=== PATIENT | female | born 1995 | race Two or more races ===

== ENCOUNTER 2017-08-23 11:02 | Emergency (ER) | payer MEDICAID ==
[~2017-08-23] VITALS: Ht 165.1 cm; Wt 89.8 kg
[~2017-08-23 11:02] MED LIST: PREN-129 PO; SUMA5SPR3
[2017-08-23 11:43] LABS: Basophils # (auto) 0.1 uL; Basophils % (auto) 0.5 % (0.0-2.0); Eosinophils # (auto) 0.1 uL; Eosinophils % (auto) 0.6 % (0.0-7.0); Hematocrit 33.3 % (36.0-46.0); Hemoglobin 10.8 g/dL (12.2-16.2); Lymphocytes # (auto) 1.9 uL; Lymphocytes % (auto) 18.3 % (10.0-50.0); Mean Corpuscular Hemoglobin 27.9 pg (28.0-32.0); Mean Corpuscular Hgb Conc. 32.6 g/dL (32.0-36.0); Mean Corpuscular Volume 85.5 fL (80.0-100.0); Monocytes # (auto) 0.7 uL; Monocytes % (auto) 6.6 % (0.0-12.0); Neutrophils # (auto) 7.5 uL; Platelet Count (auto) 277 10^3/uL (140-450); Red Blood Cells 3.89 10^6/uL (4.0-5.20); Red Cell Distribution Width 15.3 % (11.8-14.3); White Blood Cell 10.2 10^3/uL (4.4-10.8)
[2017-08-23] MEDS ORDERED: SODIUM CHLORIDE 0.9% 1,000 ML IV ONE (12:30)
[2017-08-23 13:14] LABS: Urine Bacteria FEW /hpf (None Seen); Urine Blood Negative /uL (Negative); Urine Mucus FEW (None Seen); Urine Specific Gravity 1.015 (1.001-1.035); Urine WBC 3 /hpf (0 - 5)
[2017-08-23 13:18] LABS: Albumin 3.1 g/dL (3.4-5.0); Calcium 9.2 mg/dL (8.5-10.1)
[2017-08-23 13:21] LABS: Bilirubin, Total 0.1 mg/dL (0.2-1.0); Total Protein 7.4 g/dL (6.4-8.2)
[2017-08-23 14:17] VITALS: BP 125/57
== END 2017-08-23 15:58 | disposition home or self-care (01) ==
LOC: ER 11:02
DX: O23.42 Unspecified infection of urinary tract in pregnancy, second trimester (principal); O26.892 Other specified pregnancy related conditions, second trimester; R42 Dizziness and giddiness; R51 Headache; Z3A.19 19 weeks gestation of pregnancy
CPT/HCPCS: 36415; 76805; 80053; 81001; 84702; 85025; 96360; 99285; J7030

== ENCOUNTER 2019-08-04 18:15 | Emergency (ER) | payer MEDICAID ==
[~2019-08-04] VITALS: Ht 167.6 cm; Wt 93.0 kg
[2019-08-05 01:23] VITALS: BP 155/89
== END 2019-08-05 04:52 | disposition left against medical advice (07) ==
LOC: ER 18:15
DX: R29.810 Facial weakness (principal); Z53.21 Procedure and treatment not carried out due to patient leaving prior to being seen by health care provider
CPT/HCPCS: 70450

== ENCOUNTER 2021-04-09 16:53 | Inpatient (IN) | payer MEDICAID ==
[~2021-04-09] VITALS: Ht 167.6 cm; Wt 105.5 kg
[2021-04-09 19:50] LABS: Basophils # (auto) 0 10 ^3/uL (0-0.2); Basophils % (auto) 0.2 % (0.0-2.0); Eosinophils # (auto) 0 10 ^3/uL (0-0.8); Hematocrit 44.5 % (36.0-46.0); Lymphocytes # (auto) 0.9 10 ^3/uL (0.4-5.4); Lymphocytes % (auto) 5.3 % (10.0-50.0); Mean Corpuscular Hemoglobin 31.2 pg (28.0-32.0); Mean Corpuscular Hgb Conc. 33.6 g/dL (32.0-36.0); Mean Corpuscular Volume 92.8 fL (80.0-100.0); Monocytes % (auto) 6.1 % (0.0-12.0); Neutrophils % (auto) 88.4 % (37.0-80.0); Red Cell Distribution Width 13.1 % (11.8-14.3)
[2021-04-09 20:07] LABS: Albumin 3.6 g/dL (3.4-5.0); Anion Gap 15 (5-15); Calcium 8.8 mg/dL (8.5-10.1); Carbon Dioxide 13 mmol/L (21-32); Chloride 105 mmol/L (98-107); Potassium 3.4 mmol/L (3.5-5.1); Sodium 133 mmol/L (136-145)
[2021-04-09 20:11] LABS: Alanine Aminotransferase 42 U/L (13-56); Aspartate Aminotransferase 16 U/L (15-37); BUN/Creatinine Ratio 11.4; Blood Urea Nitrogen 12 mg/dL (7-18); GFR African American 80 mL/min; GFR Non-African American 66 mL/min; Glucose 127 mg/dL (74-106)
[2021-04-09 20:13] LABS: Alkaline Phosphatase 85 U/L (45-117); Bilirubin, Total 0.6 mg/dL (0.2-1.0); Total Protein 8.7 g/dL (6.4-8.2)
[2021-04-10 00:19] LABS: INR 1.11 (0.9-1.15)
[2021-04-10] MEDS ORDERED: ACETAMINOPHEN 500 MG TAB PO ONE (00:30)
[2021-04-10] MEDS ORDERED: SODIUM CHLORIDE 0.9% 1,000 ML IV ONE ×2 (00:30→05:30)
[2021-04-10] MEDS ORDERED: IOHEXOL 300 MG/ML 100ML BOTTLE IJ ONE (01:09)
[2021-04-10] MEDS ORDERED: KETOROLAC TROMETH 30 MG/ML 1ML VIAL IV ONE (05:15)
[2021-04-10] MEDS ORDERED: ONDANSETRON HCL 4 MG/2 ML VIAL IV ONE ×3 (05:15→13:00)
[2021-04-10] MEDS ORDERED: fentaNYL CITRATE 100 MCG/2 ML VL IV ONE (05:15)
[2021-04-10] MEDS ORDERED: CIPROFLOXACIN 400MG/200ML 200 ML IV ONE (05:30)
[2021-04-10] MEDS ORDERED: metroNIDAZOLE 500MG/100ML 100 ML IV ONE (05:30)
[2021-04-10 06:46] LABS: Urine Bacteria NONE SEEN /hpf (None Seen); Urine Blood TRACE /uL (Negative); Urine Mucus FEW (None Seen); Urine WBC 6 /hpf (0 - 5)
[2021-04-10 06:47] LABS: Urine Specific Gravity > 1.050 (1.001-1.035)
[2021-04-10] MEDS ORDERED: MORPHINE SULFATE INJECTION 2 MG/ML SYRG IV ONE (09:00)
[2021-04-10] MEDS ORDERED: LORazepam 2MG/ML-1ML VIAL IV ONE (10:15)
[2021-04-10] MEDS ORDERED: POTASSIUM CHL 20MEQ/100ML 100 ML IV ONE (11:30)
[2021-04-10] MEDS ORDERED: PIPERACILLIN-TAZOB 3.375GM 100 ML IV PRN (11:30)
[2021-04-10] MEDS ORDERED: PIPERACILLIN-TAZOB 3.375GM 100 ML IV SCH (12:30)
[2021-04-10] MEDS: ACETAMINOPHEN 325 MG TAB PO PRN (12:37)
[2021-04-10] MEDS ORDERED: ONDANSETRON HCL 4 MG/2 ML VIAL ONE (12:57)
[2021-04-10] MEDS ORDERED: NITROGLYCERIN 0.4 MG SL TAB SL PRN (13:15)
[2021-04-10] MEDS ORDERED: MORPHINE SULFATE INJECTION 2 MG/ML SYRG IV PRN (13:15)
[2021-04-10] MEDS: HYDROcodone-ACET 5/325MG TAB PO PRN (15:32)
[2021-04-10] MEDS: SODIUM CHLORIDE 0.9% 1,000 ML IV SCH (18:30)
[2021-04-10] MEDS ORDERED: PROCHLORPERAZINE EDISYLATE 5 MG/ML 2ML VIAL IV ONE (19:15)
[2021-04-10] MEDS: PIPERACILLIN-TAZOB 3.375GM 100 ML IV SCH (19:24)
[2021-04-10] MEDS: PANTOPRAZOLE 40 MG/10 ML VIAL INJ IV SCH (22:00)
[2021-04-11] MEDS: MORPHINE SULFATE INJECTION 2 MG/ML SYRG IV PRN ×2 (00:31→18:57)
[2021-04-11] MEDS: ACETAMINOPHEN 325 MG TAB PO PRN (00:32)
[2021-04-11] MEDS: SODIUM CHLORIDE 0.9% 1,000 ML IV SCH ×4 (01:17→19:30)
[2021-04-11 01:22] VITALS: BP 115/84
[2021-04-11] MEDS: HYDROcodone-ACET 5/325MG TAB PO PRN (02:19)
[2021-04-11 05:00] VITALS: BP 107/66
[2021-04-11] MEDS: PIPERACILLIN-TAZOB 3.375GM 100 ML IV SCH ×4 (05:12→18:02)
[2021-04-11 06:19] LABS: Basophils # (auto) 0 10 ^3/uL (0-0.2); Basophils % (auto) 0.4 % (0.0-2.0); Eosinophils # (auto) 0 10 ^3/uL (0-0.8); Hematocrit 41.2 % (36.0-46.0); Hemoglobin 14.6 g/dL (12.2-16.2); Mean Corpuscular Hemoglobin 32.6 pg (28.0-32.0); Mean Corpuscular Hgb Conc. 35.3 g/dL (32.0-36.0); Mean Corpuscular Volume 92.3 fL (80.0-100.0); Monocytes # (auto) 0.5 10 ^3/uL (0-1.3); Monocytes % (auto) 4.8 % (0.0-12.0); Neutrophils % (auto) 83.8 % (37.0-80.0); Red Blood Cells 4.46 10^6/uL (4.0-5.20); Red Cell Distribution Width 12.9 % (11.8-14.3); White Blood Cell 9.5 10^3/uL (4.4-10.8)
[2021-04-11 06:27] LABS: Potassium 3.7 mmol/L (3.5-5.1)
[2021-04-11 06:34] LABS: BUN/Creatinine Ratio 14.4; Calcium 9.2 mg/dL (8.5-10.1)
[2021-04-11 08:00] VITALS: BP 112/68
[2021-04-11] MEDS ORDERED: PANTOPRAZOLE 40 MG/10 ML VIAL INJ IV SCH (10:00)
[2021-04-11] MEDS: PANTOPRAZOLE 40 MG/10 ML VIAL INJ IV SCH ×2 (10:45→21:57)
[2021-04-11 12:00] VITALS: BP 130/77
[2021-04-11] MEDS ORDERED: BUPIVACAINE W/ EPINEPH 0.25% INJ 50ML MDV ONE (12:19)
[2021-04-11] MEDS ORDERED: ceFAZolin 1GM/50ML 100 ML IV ONE (13:00)
[2021-04-11] MEDS ORDERED: ROCURONIUM 10MG/ML 10ML VIAL IV ONE (13:17)
[2021-04-11] MEDS ORDERED: MIDAZOLAM HCL 2MG/2ML 2ml VIAL (1mg/ml) ONE (13:17)
[2021-04-11] MEDS ORDERED: fentaNYL CITRATE 5 ML ONE (13:17)
[2021-04-11] MEDS ORDERED: PROPOFOL 10 MG/ML 20 ML IV ONE (13:18)
[2021-04-11] MEDS ORDERED: ONDANSETRON HCL 4 MG/2 ML VIAL ONE (13:18)
[2021-04-11] MEDS ORDERED: LIDOCAINE 2% (LOCAL ANESTH.) PF 5ml SDV ONE (13:18)
[2021-04-11] MEDS ORDERED: NALOXONE HCL 0.4 MG/ML VIAL ONE (14:06)
[2021-04-11] MEDS ORDERED: HYDROmorphone HCL 2 MG/ML VL IV PRN (14:30)
[2021-04-11] MEDS ORDERED: ONDANSETRON HCL 4 MG/2 ML VIAL IV PRN (14:30)
[2021-04-11] MEDS ORDERED: NEOSTIGMINE 1 MG/ML INJ (10mg/10ML VIAL) ONE (14:38)
[2021-04-11] MEDS ORDERED: GLYCOPYRROLATE 0.2 MG/ML 1ML VIAL ONE (14:38)
[2021-04-11] MEDS ORDERED: HYDROmorphone HCL 2 MG/ML VL ONE (15:04)
[2021-04-11 16:00] VITALS: BP 126/85
[2021-04-11] MEDS ORDERED: VANCOMYCIN PER PHARMACY 0 MG IV SCH (18:00)
[2021-04-11] MEDS ORDERED: VANCOMYCIN 1GM/250ML 250 ML IV SCH (18:45)
[2021-04-11 22:00] VITALS: BP 102/69
[2021-04-12] MEDS: MORPHINE SULFATE INJECTION 2 MG/ML SYRG IV PRN ×4 (00:15→22:43)
[2021-04-12] MEDS: SODIUM CHLORIDE 0.9% 1,000 ML IV SCH ×3 (03:30→19:30)
[2021-04-12] MEDS: PIPERACILLIN-TAZOB 3.375GM 100 ML IV SCH ×2 (03:38→09:11)
[2021-04-12] MEDS: HYDROcodone-ACET 5/325MG TAB PO PRN ×2 (03:49→20:58)
[2021-04-12 05:00] VITALS: BP 114/55
[2021-04-12 05:57] LABS: Basophils # (auto) 0 10 ^3/uL (0-0.2); Basophils % (auto) 0.1 % (0.0-2.0); Calcium 8.1 mg/dL (8.5-10.1); Eosinophils # (auto) 0 10 ^3/uL (0-0.8); Hematocrit 37.3 % (36.0-46.0); Hemoglobin 12.8 g/dL (12.2-16.2); Lymphocytes % (auto) 10.7 % (10.0-50.0); Mean Corpuscular Hemoglobin 31.7 pg (28.0-32.0); Mean Corpuscular Hgb Conc. 34.2 g/dL (32.0-36.0); Mean Corpuscular Volume 92.8 fL (80.0-100.0); Monocytes # (auto) 0.7 10 ^3/uL (0-1.3); Monocytes % (auto) 7.4 % (0.0-12.0); Neutrophils % (auto) 81.8 % (37.0-80.0); Potassium 3.4 mmol/L (3.5-5.1); Red Blood Cells 4.02 10^6/uL (4.0-5.20); White Blood Cell 9.8 10^3/uL (4.4-10.8)
[2021-04-12 05:59] LABS: BUN/Creatinine Ratio 10.4
[2021-04-12] MEDS: ACETAMINOPHEN 325 MG TAB PO PRN (06:48)
[2021-04-12 08:00] VITALS: BP 107/59
[2021-04-12] MEDS: PANTOPRAZOLE 40 MG/10 ML VIAL INJ IV SCH ×2 (09:10→22:14)
[2021-04-12] MEDS ORDERED: VANCOMYCIN 1GM/250ML 250 ML IV SCH ×2 (10:00→18:00)
[2021-04-12 12:00] VITALS: BP 102/52
[2021-04-12 16:00] VITALS: BP 102/55
[2021-04-12] MEDS: ONDANSETRON HCL 4 MG/2 ML VIAL IV PRN ×2 (17:04→22:43)
[2021-04-12] MEDS ORDERED: POTASSIUM CHL 20MEQ/100ML 100 ML IV ONE (18:30)
[2021-04-12] MEDS: levoFLOXacin 500 MG TAB PO SCH (19:00)
[2021-04-12 22:00] VITALS: BP 100/55
[2021-04-12] MEDS: metroNIDAZOLE 500 MG TAB PO SCH (22:14)
[2021-04-13 05:00] VITALS: BP 94/52
[2021-04-13] MEDS: SODIUM CHLORIDE 0.9% 1,000 ML IV SCH ×2 (05:26→12:12)
[2021-04-13] MEDS: metroNIDAZOLE 500 MG TAB PO SCH ×2 (05:30→15:02)
[2021-04-13 06:15] LABS: Hematocrit 34.1 % (36.0-46.0); Hemoglobin 11.8 g/dL (12.2-16.2); Mean Corpuscular Hemoglobin 31.8 pg (28.0-32.0); Mean Corpuscular Hgb Conc. 34.6 g/dL (32.0-36.0); Mean Corpuscular Volume 92.1 fL (80.0-100.0); Red Cell Distribution Width 13.5 % (11.8-14.3); White Blood Cell 9.4 10^3/uL (4.4-10.8)
[2021-04-13 06:27] LABS: Basophils % (manual) 0 (0.0-2.0); Blast Cells 0; Metamyelocytes % 0; Myelocytes % 0; Promyelocytes % 0; Reactive Lymphocytes 0
[2021-04-13 06:30] LABS: Potassium 3.2 mmol/L (3.5-5.1)
[2021-04-13 06:39] LABS: BUN/Creatinine Ratio 11.4; Calcium 8.4 mg/dL (8.5-10.1)
[2021-04-13 08:00] VITALS: BP 107/57
[2021-04-13 08:38] LABS: Band Neutrophils % (manual) 12; Eosinophils % (manual) 1 (0-7); Lymphocytes % (manual) 24 (10.0-50.0); Monocytes % (manual) 10 (0-12)
[2021-04-13] MEDS: PANTOPRAZOLE 40 MG/10 ML VIAL INJ IV SCH (09:40)
[2021-04-13] MEDS: levoFLOXacin 500 MG TAB PO SCH (09:40)
[2021-04-13] MEDS: MORPHINE SULFATE INJECTION 2 MG/ML SYRG IV PRN (09:40)
[2021-04-13] MEDS: ONDANSETRON HCL 4 MG/2 ML VIAL IV PRN ×2 (09:41→18:30)
[2021-04-13] MEDS ORDERED: POTASSIUM CHLORIDE 40 MEQ, LIDOCAINE 1% (LOCAL ANESTH.) 4 ML in SODIUM CHL 0.9% 250 ML IV ONE (11:15)
[2021-04-13] MEDS ORDERED: MET500T PO (11:38)
[2021-04-13] MEDS ORDERED: POTA-180 PO (11:38)
[2021-04-13] MEDS ORDERED: LEVO-28 PO (11:38)
[2021-04-13] MEDS ORDERED: ACET325T10 PO (11:38)
[2021-04-13] MEDS ORDERED: HYDR-4902 PO (11:38)
[2021-04-13] MEDS ORDERED: POTASSIUM CHL 20 Meq TABLET PO ONE (11:45)
[2021-04-13 12:00] VITALS: BP 110/65
[2021-04-13 12:47] VITALS: BP 107/57
[2021-04-13 16:00] VITALS: BP 120/71
== END 2021-04-13 18:39 | disposition home or self-care (01) | DRG 263 ==
LOC: EDBD 16:53 → ER 16:53 → TELE 04-10 13:12 → TELE-WESTW 04-10 23:26
PROVIDERS: ADMIT Internal Medicine; ATTEND Internal Medicine
PROC: 0FN04ZZ Release Liver, Percutaneous Endoscopic Approach (ICD-10-PCS; 2021-04-11)
PROC: 0FT44ZZ Resection of Gallbladder, Percutaneous Endoscopic Approach (ICD-10-PCS; principal; 2021-04-11 13:12)
DX: K80.00 Calculus of gallbladder with acute cholecystitis without obstruction (principal); N17.9 Acute kidney failure, unspecified; E87.1 Hypo-osmolality and hyponatremia; Z68.35 Body mass index [BMI] 35.0-35.9, adult; D72.829 Elevated white blood cell count, unspecified; E87.6 Hypokalemia; Z20.822 Contact with and (suspected) exposure to COVID-19; G43.909 Migraine, unspecified, not intractable, without status migrainosus; Z80.0 Family history of malignant neoplasm of digestive organs; Z80.1 Family history of malignant neoplasm of trachea, bronchus and lung; Z80.41 Family history of malignant neoplasm of ovary; Z80.3 Family history of malignant neoplasm of breast; Z80.8 Family history of malignant neoplasm of other organs or systems; Z81.8 Family history of other mental and behavioral disorders; Z82.0 Family history of epilepsy and other diseases of the nervous system; Z82.3 Family history of stroke; Z82.49 Family history of ischemic heart disease and other diseases of the circulatory system; Z82.5 Family history of asthma and other chronic lower respiratory diseases; Z82.62 Family history of osteoporosis; Z83.3 Family history of diabetes mellitus; E66.01 Morbid (severe) obesity due to excess calories; K66.0 Peritoneal adhesions (postprocedural) (postinfection)
CPT/HCPCS: 36415; 71045; 74177; 76705; 78226; 80048; 80053; 81001; 82247; 83605; 83690; 84702; 85007; 85025; 85027; 85610; 87040; 87077; 87186; 87426; 87493; 96365; 96367; 96375; C9113; G0378; J0690; J1885; J2001; J2250; J2405; J2543; J2704; J3480; J3490

== ENCOUNTER 2024-03-13 06:40 | Emergency (ER) | payer MEDICAID ==
[~2024-03-13] VITALS: Ht 170.2 cm; Wt 94.0 kg
[~2024-03-13 06:40] MED LIST changes: +ACET-1882 PO; +HYDR-4902 PO; +LEVO500T91 PO; +MET500T PO; +POTA-180 PO; -PREN-129 PO; -SUMA5SPR3
[2024-03-13] MEDS: ONDANSETRON ODT 4 MG TAB PO ONE (08:14)
[2024-03-13 08:15] VITALS: BP 115/67; PULSE 64; RESP 15; TEMP 98; O2SAT 98
[2024-03-13 08:52] LABS: Basophils # (auto) 0.1 10 ^3/uL (0-0.2); Basophils % (auto) 0.5 % (0.0-2.0); Eosinophils # (auto) 0.1 10 ^3/uL (0-0.8); Eosinophils % (auto) 1.4 % (0.0-7.0); Hematocrit 43.8 % (36.0-46.0); Hemoglobin 14.7 g/dL (12.2-16.2); Lymphocytes # (auto) 2.5 10 ^3/uL (0.4-5.4); Lymphocytes % (auto) 25.7 % (10.0-50.0); Mean Corpuscular Hemoglobin 32.5 pg (28.0-32.0); Mean Corpuscular Hgb Conc. 33.5 g/dL (32.0-36.0); Monocytes # (auto) 0.5 10 ^3/uL (0-1.3); Monocytes % (auto) 5.7 % (0.0-12.0); Neutrophils # (auto) 6.4 10 ^3/uL (1.6-8.6); Neutrophils % (auto) 66.7 % (37.0-80.0); Platelet Count (auto) 279 10^3/uL (140-450); Red Blood Cells 4.52 10^6/uL (4.0-5.20); Red Cell Distribution Width 13.2 % (11.8-14.3); White Blood Cell 9.7 10^3/uL (4.4-10.8)
[2024-03-13 09:08] LABS: Urine Bacteria MANY /hpf (None Seen); Urine Blood Negative /uL (Negative); Urine Budding Yeast OCCASIONAL /hpf (None Seen); Urine Clarity Clear (Clear); Urine Color Colorless (Yellow); Urine Protein, UAD Negative (Negative); Urine Specific Gravity 1.008 (1.001-1.035); Urine Urobilinogen Normal (Negative); Urine WBC 1 /hpf (0 - 5); Urine pH 6.5 (5.0-9.0)
[2024-03-13 09:09] LABS: Anion Gap 5 (5-15); Carbon Dioxide 26 mmol/L (20-30); Chloride 106 mmol/L (98-107); Potassium 4.1 mmol/L (3.5-5.1); Sodium 137 mmol/L (136-145)
[2024-03-13 09:10] LABS: Calcium 9.7 mg/dL (8.7-10.4)
[2024-03-13 09:15] LABS: BUN/Creatinine Ratio 10.9 (10.0-20.0); Blood Urea Nitrogen 10 mg/dL (9-23); Glucose 101 mg/dL (74-106)
[2024-03-13] MEDS ORDERED: ZOFR4T PO (09:26)
== END 2024-03-13 09:36 | disposition home or self-care (01) ==
LOC: ER 06:45
DX: B34.9 Viral infection, unspecified (principal); R42 Dizziness and giddiness; Z32.02 Encounter for pregnancy test, result negative
CPT/HCPCS: 36415; 80048; 81001; 81025; 85025; 99283; Q0162